=== PATIENT | male | born 1960 | race Caucasian/White ===

== ENCOUNTER 2018-05-09 03:48 | Emergency (ER) | payer BC ==
[~2018-05-09] VITALS: Ht 175.3 cm; Wt 79.4 kg
--- NOTE | 2018-05-09 03:54 | NUR ---
PT CAME TO EMERGENCY DEPT. STATING HE FEELS LIKE HIS THROAT IS CLOSING. PT HAS REDNESS/RASH X 2 DAYS. PT AXO4. RESPIRATIONS EVEN AND UNLABORED. PT STATES HE HAS ALLERGY TO SHELLFISH. PT PUT ON THE MONITOR AND PULSE OX.
--- NOTE | 2018-05-09 03:54 | NUR ---
TINA LY AT BEDSIDE.
[2018-05-09] MEDS ORDERED: FAMOTIDINE (20 MG) 20 MG TABLET ONE (03:58)
[2018-05-09] MEDS ORDERED: DEXAMETHASONE SOD PHOSPHATE 10 MG/ML VIAL ONE (03:58)
[2018-05-09] MEDS ORDERED: DEXAMETHASONE SOD PHOSPHATE 4 MG/ML VIAL IM ONE (04:00)
[2018-05-09] MEDS ORDERED: FAMOTIDINE (20 MG) 20 MG TABLET PO ONE (04:00)
--- NOTE | 2018-05-09 04:30 | NUR ---
Pt being monitored and resting in bed comfortably in bed.
[2018-05-09] MEDS ORDERED: diphenhydrAMINE HCL 50 MG/ML VIAL ONE (04:34)
[2018-05-09] MEDS ORDERED: diphenhydrAMINE HCL 50 MG/ML VIAL IM ONE (05:30)
--- NOTE | 2018-05-09 05:38 | NUR ---
Patient discharged to home in stable condition. Written and verbal after care instructions given. Patient verbalizes understanding of instruction. Pt ambulatory with steady gait.
[2018-05-09 05:41] VITALS: BP 148/94
== END 2018-05-09 05:42 | disposition home or self-care (01) ==
LOC: ER 03:51
DX: L50.0 Allergic urticaria (principal); T78.1XXA Other adverse food reactions, not elsewhere classified, initial encounter; X58.XXXA Exposure to other specified factors, initial encounter
CPT/HCPCS: J1100; J1200